=== PATIENT | female | born 1990 | race African-American/Black ===

== ENCOUNTER 2017-10-25 03:08 | Inpatient (IN) | payer MEDICAID ==
[2017-10-25 03:28] LABS: APPEARANCE,URINE SLIGHTLY-CLOUDY; BILIRUBIN,URINE NEGATIVE (NEGATIVE); COLOR,URINE STRAW; GLUCOSE, URINE NEGATIVE (NEGATIVE); KETONES,URINE NEGATIVE (NEGATIVE); LEUKOCYTE ESTERASE,URINE TRACE (NEGATIVE); NITRITE,URINE NEGATIVE (NEGATIVE); PROTEIN,URINE NEGATIVE (NEGATIVE); URINE SPECIFIC GRAVITY 1.001; UROBILINOGEN,URINE NEGATIVE mg/dL (<2.0)
[2017-10-25 03:45] LABS: URINE AMPHETAMINES SCREEN NEGATIVE; URINE BARBITURATES SCREEN NEGATIVE; URINE BENZODIAZEPINES SCREEN NEGATIVE; URINE COCAINE SCREEN NEGATIVE; URINE METHADONE SCREEN NEGATIVE; URINE PHENCYCLIDINE SCREEN NEGATIVE
[2017-10-25 03:53] LABS: URINE MARIJUANA (THC) SCREEN UNCONFIRMED POSITIVE
[2017-10-25 04:56] LABS: UR PRO/CREAT RATIO RESULT 0.8 mg/mg (0.0-0.2); URINE CREATININE 20.1 mg/dL (16-327); URINE PROTEIN 16.6 mg/dL (<12)
[2017-10-25 05:25] LABS: ABSOLUTE BASOPHILS # (AUTO) 0.1 10^3/uL (0.0-0.2); ABSOLUTE EOSINOPHILS # (AUTO) 0.2 10^3/uL (0.0-0.6); ABSOLUTE LYMPHOCYTES (AUTO) 3.2 10^3/uL (0.5-4.7); ABSOLUTE MONOCYTES (AUTO) 0.7 10^3/uL (0.1-1.4); ABSOLUTE NEUT (AUTO) 4.8 10^3/uL (1.7-8.2); BASOPHILS % (AUTO) 0.7 % (0-2); EOSINOPHILS % (AUTO) 1.9 % (0-6); HEMATOCRIT 34.1 % (36.0-47.0); HEMOGLOBIN 11.5 g/dL (12.0-15.5); LYMPHOCYTES % (AUTO) 36.2 % (13-45); MEAN CORPUSCULAR HEMOGLOBIN 27.2 pg (27.0-33.4); MEAN CORPUSCULAR HGB CONC 33.8 g/dL (32.0-36.0); MEAN CORPUSCULAR VOLUME 81 fl (80-97); MONOCYTES % (AUTO) 8.1 % (3-13); PLATELET COUNT 312 10^3/uL (150-450); RED BLOOD COUNT 4.22 10^6/uL (3.72-5.28); RED CELL DISTRIBUTION WIDTH 14.9 % (11.5-14.0); SEGMENTED NEUTROPHILS % (AUTO) 53.1 % (42-78); TOTAL CELLS COUNTED % (AUTO) 100 %
[2017-10-25 05:28] LABS: ALANINE AMINOTRANSFERASE 21 U/L (9-52); ALBUMIN 2.7 g/dL (3.5-5.0); ALKALINE PHOSPHATASE 151 U/L (38-126); ANION GAP 7 (5-19); ASPARTATE AMINO TRANSFERASE 17 U/L (14-36); BILIRUBIN,DIRECT 0.2 mg/dL (0.0-0.4); BILIRUBIN,TOTAL 0.2 mg/dL (0.2-1.3); BLOOD UREA NITROGEN 3 mg/dL (7-20); CALCIUM 8.9 mg/dL (8.4-10.2); CARBON DIOXIDE 23 mmol/L (22-30); CHLORIDE 108 mmol/L (98-107); GLUCOSE 100 mg/dL (75-110); LDH 379 U/L (313-618); POTASSIUM 3.1 mmol/L (3.6-5.0); SODIUM 137.7 mmol/L (137-145); TOTAL PROTEIN 5.6 g/dL (6.3-8.2); URIC ACID 4.8 mg/dL (2.5-6.2)
[2017-10-25] MEDS ORDERED: PENICILLIN G POTASSIUM 5,000,000 UNIT in DEXTROSE 5%-WATER 100 ML IV ONE (06:18)
[2017-10-25] MEDS ORDERED: RINGERS SOLUTION,LACTATED 1,000 ML IV PRN (06:18)
[2017-10-25] MEDS ORDERED: MISOPROSTOL 0.2 MG TABLET ONE (06:22)
[2017-10-25] MEDS ORDERED: LIDOCAINE 1% INJ-PF (10 MG/ML) 30 ML SDV ONE (06:22)
[2017-10-25] MEDS ORDERED: OXYTOCIN/NORMAL SALINE 20 UNIT/1,000 ML RTUINJ ONE (06:22)
[2017-10-25] MEDS ORDERED: PENICILLIN G-K 5 MILLION UNIT VIAL ONE ×2 (06:36→09:37)
[2017-10-25] MEDS ORDERED: OXYTOCIN/NORMAL SALINE 20 UNIT/1,000 ML RTUINJ IV PRN ×2 (06:58→10:07)
[2017-10-25] MEDS ORDERED: HYDRALAZINE HCL INJ/PF 20 MG/1 ML SDV ONE (07:39)
[2017-10-25] MEDS ORDERED: HYDRALAZINE HCL INJ/PF 20 MG/1 ML SDV IV ONE ×2 (07:47→08:09)
[2017-10-25] MEDS ORDERED: ONDANSETRON HCL INJ/PF 4 MG/2 ML SDV ONE (07:59)
[2017-10-25] MEDS ORDERED: ONDANSETRON HCL INJ/PF 4 MG/2 ML SDV IV ONE (08:01)
--- NOTE | 2017-10-25 08:04 | Admission Physical ---
Datetime Report Generated by CPN: 10/25/2017 08:04 CURRENT ADMISSION Chief Complaint: Uterine Contractions Indication for Induction: PreEclampsia Admit Impression : Term, Intrauterine ; Induction of Labor; Admit Plan: Admit to Unit; Initiate Labor Induction Protocol Admit Plan- Other: prot/creat of 0.8. Pressures elevated at LC today. Initiate delivery ALLERGIES Medication Allergies: Yes Medication Allergies: hydrocodone/hives, itching (10/25/2017); promethazine/VOMITING, diaph (10/25/2017) Latex: No Latex Allergies OBSTETRICAL HISTORY EDC: 11/04/2017 00:00 : 4 Para: 2 Term: 2 : 0 SAB: 0 IAB: 1 Ectopic: 0 Livin Cesareans: 1 VBACs: 1 Multiple Births: 0 Gestational Diabetes: No Rh Sensitization: No Incompetent Cervix: No ALEXIS: No Infertility: No ART Treatment: No Uterine Anomaly: No IUGR: No Hx Previous C/S: Yes Macrosomia: No Hx Loss/Stillborn: No PIH: No Hx : No Placenta Previa/Abruption: No Depression/PP Depression: Yes PTL/PROM: No Post Hemorrhage: No Current Procedures: Ultrasound; NST Obstetrical History Comments: G1- 2009 c/s @ 41weeks for distress G2- 2011 EAB @ 8weeks G3- 2012 G4- current SEE RECORDS Alcohol: No Marijuana : Yes Cocaine: No Other Illicit Drugs: No Cigarettes: Former Smoker. [id number] MEDICAL HISTORY Diabetes: No Blood Transfusion: No Pulmonary Disease (Asthma, TB): No Breast Disease: No Hypertension: No Dining Room Attendant Cafeteria Surgery: No Heart Disease: No Hosp/Surgery: Yes Autoimmune Disorder: No Anesthetic Complications: No Kidney Disease: No Abnormal Pap Smear: No Neuro/Epilepsy: No Psychiatric Disorders: No Other Medical Diseases: No Hepatitis/Liver Disease: No Significant Family History: No Varicosities/Phlebitis: No Trauma/Violence : No Thyroid Dysfunction: No Medical History Comments: d+c, c/s, cholecystectomy, tonsillectomy INFECTIOUS HISTORY Gonorrhea: No Genital Herpes: No Chlamydia: No Tuberculosis: No Syphilis: No Hepatitis: No HIV/AIDS Exposure: No Rash or Viral Illness: No HPV: No PHYSICAL EXAM General: Normal HEENT: Normal Neurologic: Normal Thyroid: Normal Heart: Normal Lungs: Normal Breast: Normal Back: Normal Abdomen: Normal Genitourinary Exam: Normal Extremities: Normal DTRs: Normal Pelvic Type: Adequate Vital Signs: Reviewed Details Vital Signs: elevated pressures VAGINAL EXAM Dilatation: 3 Effacement: 80 Station: -1 MEMBRANES Pooling: Negative Membranes: Intact FETUS A EGA: 38.4 Monitoring: External US FHR- Baseline: 120 Variability: Moderate 6-25bpm Accelerations: 15X15 Decelerations: None FHR Category: Category I Estimated Weight (gm): 3700 Presentation: Vertex PLANS FOR LABOR AND DELIVERY Pain Management: Epidural Feeding Preference: Both Benefit of Breast Feed Discussed: Yes Circumcision: N/A INFORMED CONSENT Signature: with User ID: [email or web address]
[2017-10-25] MEDS ORDERED: BUPIVACAINE HCL 0.25 % INJ/PF (2.5 MG/1 ML) 30 ML VIAL ONE (08:08)
[2017-10-25] MEDS ORDERED: EPHEDRINE SULFATE INJ 50 MG/1 ML AMPULE ONE (08:08)
[2017-10-25] MEDS ORDERED: FENTANYL/BUPIVACAINE/NS/PF 300 MCG/150 ML RTUINJ EPI ONE (08:08)
[2017-10-25] MEDS ORDERED: ACETAMINOPHEN 325 MG TABLET PO PRN (10:07)
[2017-10-25] MEDS ORDERED: MAGNESIUM HYDROXIDE SUSP 30 ML UDCUP PO PRN (10:07)
[2017-10-25] MEDS ORDERED: DIBUCAINE 1% OINTMENT 28 GM TP PRN (10:07)
[2017-10-25] MEDS ORDERED: PROMETHAZINE HCL 25 MG TABLET PO PRN (10:07)
[2017-10-25] MEDS ORDERED: PSEUDOEPHEDRINE HCL 30 MG TABLET PO PRN (10:07)
[2017-10-25] MEDS ORDERED: NA PHOS,M-B/NA PHOS,DI-BA (ADULT) 133 ML ENEMA PR PRN (10:07)
[2017-10-25] MEDS ORDERED: MEASLES,MUMPS&RUBELLA VACC/PF 0.5 ML VIAL SUBCUT PRN (10:07)
[2017-10-25] MEDS ORDERED: PROMETHAZINE HCL INJ 25 MG/1 ML VIAL IV PRN (10:07)
[2017-10-25] MEDS ORDERED: ZOLPIDEM TARTRATE 5 MG TABLET PO PRN (10:07)
[2017-10-25] MEDS ORDERED: DIPH/PERTUSS(ACELL)/TETANUS VAC/PF 0.5 ML SYR (>=10YO) IM PRN (10:07)
[2017-10-25] MEDS ORDERED: BENZOCAINE/MENTHOL AEROSOL SPRAY 56 ML TOP PRN (10:07)
[2017-10-25] MEDS ORDERED: GLYCERIN/WITCH HAZEL LEAF 1 EACH MED..PAD TP PRN (10:07)
[2017-10-25] MEDS ORDERED: PROMETHAZINE HCL 25 MG SUPP.RECT PR PRN (10:07)
[2017-10-25] MEDS ORDERED: DIPHENHYDRAMINE HCL 25 MG CAPSULE PO PRN (10:07)
[2017-10-25] MEDS ORDERED: PENICILLIN G POTASSIUM 2,500,000 UNIT in DEXTROSE 5%-WATER 50 ML IV SCH (10:18)
--- NOTE | 2017-10-25 10:19 | Warning Signs in Babies ---
VOD Warning Signs Datetime Report Generated by N: 10/25/2017 10:18 VOD#[id number] -Warning Signs in Babies: Viewed with Parent(s)/Family (10/25/2017 10:18:Nellie Gonzalez RN)
--- NOTE | 2017-10-25 12:01 | Delivery Summary ---
Del Sum A-C Datetime Report Generated by CPN: 10/25/2017 12:01 DELIVERY PERSONNEL DELIVERY PERSONNEL: [id number] Delivery Doctor:: Sil Anand CNM Nurse Geophysical Manager Certified:: Sil Anand CNM Labor and Delivery Nurse:: Nellie Gonzalez RNproperty controller Nurse:: KARI Hannah Nursery Nurse:: Saniya Almanzar RN Networking Technician/DOG FOOD DOUGH MIXER: Zuri Singer, NEWS PRODUCTION SUPERVISOR MATERNAL INFORMATION Delivery Anesthesia: Epidural Medications After Delivery: Pitocin Bolus-Please Comment Meds After Delivery Comment: Pitocin 20 units in 1000 ml nss open for bolus per gravity Maternal Complications: Other Complication Details: previous C/S x1 Provider Comments: pt progressed to c/100/+1. Pushed very well, of viable female , head, shoulders, and body delivered without difficulty, with spontaneous cry and respiratons, to maternal abodmen, cord clamped X2, after 2 minute delay, cut free. spontaneous delivery of placenta, appears intact, 3 VC, vagina and perineum inspected no lacerations noted, hemostasis acheived with external fundal massage and IV pitocin, mother and in stable condition, routine pp care. LABOR SUMMARY EDC: 11/04/2017 00:00 No. Babies in Womb: 1 Attempted: No Labor Anesthesia: Epidural LABOR INFORMATION Reason for Induction: Not Applicable Onset of Labor: 10/25/2017 08:30 Complete Dilatation: 10/25/2017 10:00 Oxytocin: Augmentation Group B Beta Strep: positive Antibiotics # of Doses: 2 Antibiotics Time of Last Dose: 1003 Name of Antibiotic Given: Penicillin Steroids Given: None Reason Steroids Not Administered: Not Applicable MEMBRANES Membranes Rupture Method: Spontaneous Rupture of Membranes: 10/25/2017 08:46 Length of Rupture (hr): 1.28 Amniotic Fluid Color: Clear Amniotic Fluid Amount: Moderate Amniotic Fluid Odor: Normal STAGES OF LABOR Stage 1 hr: 1 Stage 1 min: 30 Stage 2 hr: 0 Stage 2 min: 3 Stage 3 hr: 0 Stage 3 min: 3 Total Time in Labor hr: 1 Total Time in Labor min: 36 VAGINAL DELIVERY Episiotomy: None Laceration #1: None Laceration Extension #1: N/A Laceration Repair: Not Applicable Sponge Count Correct: N/A Sharps Count Correct: N/A CSECTION DELIVERY Primary Indication: N/A Secondary Indication: N/A CSection Incidence: N/A Labor: N/A Elective: N/A CSection Incision: N/A BABY A INFORMATION Delivery Date/Time: 10/25/2017 10:03 Method of Delivery: Vaginal Born in Route : No : Successful Forceps: N/A Vacuum Extraction: N/A Shoulder Dystocia : No PRESENTATION/POSITION BABY A Presentation: Cephalic Cephalic Presentation: Vertex Vertex Position: Left Occipital Anterior Breech Presentation: N/A PLACENTA INFORMATION BABY A Placenta Delivery Time : 10/25/2017 10:06 Placenta Method of Delivery: Spontaneous Placenta Status: Delivered SCORES BABY A Heart Rate 1 min: >100 bpm Resp Effort 1 min: Good Cry Reflex Irritability 1 min: Cough or Sneeze or Pulls Away Muscle Tone 1 min: Active Motion Color 1 min: Blue/Pale Resuscitation Effort 1 min: Tactile Stimulation SCORE 1 MIN: 8 Heart Rate 5 min: >100 bpm Resp Effort 5 min: Good Cry Reflex Irritability 5 min: Cough or Sneeze or Pulls Away Muscle Tone 5 min: Active Motion Color 5 min: Body [place], Extremities Blue Resuscitation Effort 5 min: N/A SCORE 5 MIN: 9 Resuscitation Effort 10 min: N/A INFANT INFORMATION BABY A Gestational Age at Delivery: 38.4 Gestational Status: Early Term- 37- 38.6 Weeks Outcome : Liveborn Condition : Stable Infant Sex: Female IDENTIFICATION BABY A Verification Date/Time: 10/25/2017 10:28 ID Band Number: [id number] Mother's Name Verified: Yes Infant RN Verifying Infant: Yakelin Christiana RNC Additional Verifying Personnel: Anne FitzpatrickRolan RN WEIGHT/LENGTH BABY A Birthweight (gm): 2630 Infant Weight (lb): 5 Infant Weight (oz): 13 Infant Length (in): 18.50 Length (cm): 46.99 CORD INFORMATION BABY A No. Cord Vessels: 3 Nuchal Cord : N/A Cord Blood Taken: Yes-For Eval (Mom's Blood Type - or O+) Suction: None ASSESSMENT BABY A Complications: None Physical Findings at Delivery: Within Normal Limits Infant Respirations: Appears Normal Skin to Skin: Yes Photographer News/ALS Called : No Care By: K Yohan RN Transferred To: Remains with Mother BABY B INFORMATION : N/A SIGNATURES Assignment: Sara Soliman MD Signature: with User ID: [email or web address] : with User ID: [email or web address]
[2017-10-25] MEDS: IBUPROFEN 800 MG TABLET PO SCH ×2 (13:13→21:59)
[2017-10-25] MEDS: DOCUSATE SODIUM 100 MG CAPSULE PO SCH (17:00)
[2017-10-25] MEDS: FERROUS SULFATE 325 MG TABLET PO SCH (17:01)
[2017-10-25] MEDS: FAMOTIDINE 20 MG TABLET PO SCH (21:59)
[2017-10-26] MEDS: IBUPROFEN 800 MG TABLET PO SCH ×3 (06:01→21:52)
[2017-10-26 06:45] LABS: HEMATOCRIT 31.1 % (36.0-47.0); HEMOGLOBIN 10.6 g/dL (12.0-15.5); MEAN CORPUSCULAR HEMOGLOBIN 27.7 pg (27.0-33.4); MEAN CORPUSCULAR HGB CONC 33.9 g/dL (32.0-36.0); MEAN CORPUSCULAR VOLUME 82 fl (80-97); PLATELET COUNT 292 10^3/uL (150-450); RED BLOOD COUNT 3.81 10^6/uL (3.72-5.28); RED CELL DISTRIBUTION WIDTH 14.8 % (11.5-14.0); WHITE BLOOD COUNT 10.5 10^3/uL (4.0-10.5)
[2017-10-26] MEDS: FAMOTIDINE 20 MG TABLET PO SCH ×2 (10:11→21:52)
[2017-10-26] MEDS: FERROUS SULFATE 325 MG TABLET PO SCH ×2 (10:11→17:17)
[2017-10-26] MEDS: DOCUSATE SODIUM 100 MG CAPSULE PO SCH ×2 (10:12→17:17)
[2017-10-26] MEDS: PRENATAL VITAMIN W DHA CAPSULE PO SCH (10:12)
[2017-10-26] MEDS: SENNOSIDES/DOCUSATE 8.6-50 MG 1 EACH TABLET PO SCH (10:12)
--- NOTE | 2017-10-26 11:26 | PDOC PROGRESS REPORT ---
Subjective-OB Progress Note for:: 10/26/17 Subjective: 27yo G4 now P3 s/p ppd 1. Pt. ambulating and voiding without difficulty. denies SOB/chest pain/dizziness/headache/RUQ or other concerns at this time. Physical Exam (OB) Vital Signs: Temp Pulse Resp BP Pulse Ox 98.1 F 69 18 127/83 H 100 10/26/17 08:07 10/26/17 08:07 10/26/17 08:07 10/26/17 08:07 10/26/17 08:07 Intake & Output 10/25/17 10/26/17 10/27/17 06:59 06:59 06:59 Intake Total 1000 Balance 1000 Weight 111.9 kg - General General Appearance: Appears well In distress: None - PIH/Pre-Eclampsia DTR's: 1 + Clonus: Negative Headache: Absent Epigastric Pain: No Visual Changes: No - Episiotomy/Laceration Site Condition: N/A - Lochia Lochia Amount: Scant < 10 ml Lochia Color: Rubra/Red - Abdomen Description: Soft Hernia Present: No Fundal Description: Firm, Midline Fundal Height: u/u - u/2 - Respiratory Respiratory Status: No respiratory distress - Extremities Upper extremity: Normal inspection Lower extremities: Normal inspection - Neurological Cognition: Normal Orientation: AAOx4 - Psychological Associated symptoms: Normal affect - bonding with baby, partner at bedside, Normal mood Objective-Diagnostic Laboratory: 10/26/17 06:32 10/25/17 04:58 10/26/17 06:32 WBC 10.5 RBC 3.81 Hgb 10.6 L Hct 31.1 L MCV 82 MCH 27.7 MCHC 33.9 RDW 14.8 H Plt Count 292 Assessment and Plan(PN) - Assessment and Plan (1) History of section, low transverse Is this a current diagnosis for this admission?: Yes Plan: Routine pp care. (2) Limited care Qualifiers: Trimester: unspecified trimester Qualified Code(s): O09.30 - Supervision of with insufficient care, unspecified trimester Is this a current diagnosis for this admission?: Yes Plan: delivered (3) Vaginal after () Is this a current diagnosis for this admission?: Yes Plan: Routine pp care. (4) Acute blood loss anemia Is this a current diagnosis for this admission?: Yes Plan: Increase dietary iron and feso4 bid (5) Preeclampsia Qualifiers: Trimester: unspecified trimester Qualified Code(s): O14.90 - Unspecified pre-eclampsia, unspecified trimester Is this a current diagnosis for this admission?: Yes Plan: continue to monitor for s/s of pre-e. - Time Spent with Patient Time with patient: Less than 15 minutes Medications reviewed and adjusted accordingly: Yes - Disposition Anticipated Discharge: Home Within: within 24 hours
[2017-10-27] MEDS: IBUPROFEN 800 MG TABLET PO SCH (06:00)
--- NOTE | 2017-10-27 08:50 | PDOC DISCHARGE SUMMARY ---
Final Diagnosis Discharge Date: 10/27/17 - Final Diagnosis (1) Acute blood loss anemia Is this a current diagnosis for this admission?: Yes (2) Cannabis use disorder, mild, abuse Is this a current diagnosis for this admission?: Yes (3) History of section, low transverse Is this a current diagnosis for this admission?: Yes (4) Limited care Is this a current diagnosis for this admission?: Yes (5) Preeclampsia Is this a current diagnosis for this admission?: Yes (6) Vaginal after () Is this a current diagnosis for this admission?: Yes Discharge Data - Discharge Medication Prescriptions: Docusate Sodium [Colace 100 mg Capsule] 100 mg PO BID #60 capsule Ferrous Sulfate [Feosol 325 mg Tablet] 325 mg PO BID #60 tablet Ibuprofen [Motrin 800 mg Tablet] 800 mg PO Q8 #60 tablet Home Medications: Pnv 102/Iron/Folate 1/Dss/Dha [Vitafol Fe+ Docusate Combo Pck] 1 tab PO DAILY Docusate Sodium [Colace 100 mg Capsule] 100 mg PO BID #60 capsule 10/27/17 Ferrous Sulfate [Feosol 325 mg Tablet] 325 mg PO BID #60 tablet 10/27/17 Ibuprofen [Motrin 800 mg Tablet] 800 mg PO Q8 #60 tablet 10/27/17 Gestational Age: 38.4 Reason(s) for Admission: Induction of Labor, PIH Procedures: NST Intrapartum Procedure(s): Spontaneous Vaginal Delivery - Data Baby 1 Female at 1 minute: 8 at 5 minutes: 9 Weight: 2630 kg Home with Mother: Yes Complications: No - Diagnosis Test Laboratory: Temp Pulse Resp BP Pulse Ox 97.6 F 75 20 149/87 H 100 10/27/17 08:00 10/27/17 08:00 10/27/17 08:00 10/27/17 08:00 10/27/17 08:00 10/25/17 10/25/17 10/26/17 03:18 04:58 06:32 RBC 4.22 3.81 Hgb 11.5 L 10.6 L Hct 34.1 L 31.1 L Urine Opiates Screen NEGATIVE - Discharge information/Instructions Discharge Activity: Activity As Tolerated, Pelvic Rest, No tub bath Discharge Diet: Regular Disposition: HOME, SELF-CARE Follow up with: [facility] in: 1, Weeks
[2017-10-27] MEDS: DOCUSATE SODIUM 100 MG CAPSULE PO SCH (09:30)
[2017-10-27] MEDS: SENNOSIDES/DOCUSATE 8.6-50 MG 1 EACH TABLET PO SCH (09:30)
[2017-10-27] MEDS: FERROUS SULFATE 325 MG TABLET PO SCH (09:30)
[2017-10-27] MEDS: FAMOTIDINE 20 MG TABLET PO SCH (09:30)
[2017-10-27] MEDS: PRENATAL VITAMIN W DHA CAPSULE PO SCH (09:30)
[2017-10-27 11:54] VITALS: BP 139/92
== END 2017-10-27 13:55 | disposition home or self-care (01) | DRG 775 ==
LOC: LC 03:08 → LR 05:36 → 2S 12:13
PROVIDERS: ADMIT Obstetrics & Gynecology; ATTEND Obstetrics & Gynecology
PROC: 10E0XZZ Delivery of Products of Conception, External Approach (ICD-10-PCS; principal; 2017-10-25)
PROC: 4A1HXCZ Monitoring of Products of Conception, Cardiac Rate, External Approach (ICD-10-PCS; 2017-10-25)
DX: O34.211 Maternal care for low transverse scar from previous cesarean delivery (principal); O99.324 Drug use complicating childbirth; F12.90 Cannabis use, unspecified, uncomplicated; O14.94 Unspecified pre-eclampsia, complicating childbirth; O99.824 Streptococcus B carrier state complicating childbirth; Z3A.38 38 weeks gestation of pregnancy; Z37.0 Single live birth; Z90.49 Acquired absence of other specified parts of digestive tract; Z87.891 Personal history of nicotine dependence
CPT/HCPCS: 36415; 59025; 80053; 80307; 81005; 82570; 83615; 84156; 84550; 85025; 85027; 86592; 86850; 86900; 86901; J0360; J2405; J2540; J2590; J3010; J3490

== ENCOUNTER 2019-07-07 05:43 | Emergency (ER) | payer SELFPAY ==
[2019-07-07 06:33] LABS: A TYPE INFLUENZA AG NEGATIVE (NEGATIVE)
[2019-07-07 06:34] LABS: B INFLUENZA AG NEGATIVE (NEGATIVE)
[2019-07-07] MEDS ORDERED: BENZONATATE 100 MG CAPSULE PO ONE (08:01)
[2019-07-07 08:20] VITALS: BP 145/77
--- NOTE | 2019-07-10 10:25 | ER Document Report ---
Entered by ALEJANDRO COLON SCRIBE 07/07/19 0756 Acting as scribe for:GALINA LOUIS MD ED General - General Chief Complaint: Flu Symptoms Stated Complaint: FLU LIKE SYMPTOMS Time Seen by Provider: 07/07/19 07:40 Information source: Patient Notes: 29 year old female presents to the emergency department with flu-like symptoms that began yesterday. Patient complains of cough, nausea and sputum that is "clear with a little bit of green". Patient denies vomiting. Patient did not receive her influenza vaccine this year. TRAVEL OUTSIDE OF THE [place] IN LAST 30 DAYS: No - Related Data Allergies/Adverse Reactions: hydrocodone [From Lortab] Adverse Reaction (Verified 07/07/19 05:54) hives, itching promethazine [From Phenergan] Adverse Reaction (Verified 07/07/19 05:54) VOMITING, diaphoresis Past Medical History - General Information source: Patient - Social History Smoking Status: Current Every Day Smoker Cigarette use (# per day): Yes - 1/2 pack per day Chew tobacco use (# tins/day): No Frequency of alcohol use: None Family History: Reviewed & Not Pertinent Patient has suicidal ideation: No Patient has homicidal ideation: No - Medical History Medical History: Negative Past Surgical History: Reports: Hx Section, Hx Cholecystectomy, Hx Tonsillectomy Review of Systems - Review of Systems Constitutional: No symptoms reported EENT: No symptoms reported Cardiovascular: No symptoms reported Respiratory: See HPI, Cough, Sputum - Clear with some green Gastrointestinal: See HPI, Nausea. denies: Vomiting Genitourinary: No symptoms reported Female Genitourinary: No symptoms reported Musculoskeletal: No symptoms reported Skin: No symptoms reported Hematologic/Lymphatic: No symptoms reported Neurological/Psychological: No symptoms reported -: Yes All other systems reviewed and negative Physical Exam - Vital signs Vitals: Temp Pulse Resp BP Pulse Ox 99.0 F 105 H 14 150/77 H 94 07/07/19 05:56 07/07/19 05:56 07/07/19 05:56 07/07/19 05:56 07/07/19 05:56 - Notes Notes: Physical Exam: General: Alert, appears well. Obese. HEENT: Normocephalic. Atraumatic. PERRL. Extraocular movements intact. Oropharynx clear. TMs are retracted bilaterally. Nasal and sinus congestion. Neck: Supple. Non-tender. Respiratory: No respiratory distress. Coarse and harsh breath sounds bilaterally. No wheezes. Cardiovascular: Regular rate and rhythm. Abdominal: Normal Inspection. Non-tender. No distension. Normal Bowel Sounds. Back: No gross abnormalities. Extremities: Moves all four extremities. Upper extremities: Normal inspection. Normal ROM. Lower extremities: Normal inspection. No edema. Normal ROM. Neurological: Normal cognition. AAOx4. Normal speech. Psychological: Normal affect. Normal Mood. Skin: Warm. Dry. Normal color. Course - Vital Signs Vital signs: Temp Pulse Resp BP Pulse Ox 99.0 F 102 H 18 145/77 H 99 07/07/19 08:21 07/07/19 08:21 07/07/19 08:21 07/07/19 08:21 07/07/19 08:21 Discharge - Discharge Clinical Impression: Viral upper respiratory tract infection with cough Condition: Stable Disposition: HOME, SELF-CARE Additional Instructions: Upper Respiratory Illness You have a viral infection of the respiratory passages -- a "cold." This common infection causes nasal congestion, drainage, and often sore throat and cough. It is caused by a virus and is highly contagious. The disease usually lasts a week or more, though the worst symptoms are usually over in 3 or 4 days. There is no "cure" for the viral infection -- it must run its course. If there is a complication, such as bacterial infection in the nose, sinuses, middle ear, or bronchial tubes, antibiotics may be required, but antibiotics won't affect the virus. If you smoke, you should STOP!! Drink plenty of fluids. A humidifier may help. An expectorant medication or decongestant may make you more comfortable. Use acetaminophen or ibuprofen for fever or aches. See the doctor if fever persists over two or three days, if there is any significant worsening of your symptoms, or if you simply fail to improve as expected. Try the xmea-bit-ayaotqj cough and cold preparations such as Delsym DM, or Robitussin-DM. Take the Tessalon Perles as prescribed to help suppress your cough. Take Tylenol and ibuprofen for fever and pains as needed. Drink plenty of fluids and get plenty of rest. Follow-up with your primary care provider if not improving. RETURN TO THE EMERGENCY ROOM IF ANY NEW OR WORSENING SYMPTOMS. Prescriptions: Benzonatate [Tessalon Perles 100 mg Capsule] 100 mg PO ASDIR PRN #30 capsule PRN Reason: Scribe Attestation: 07/07/19 07:59 I personally performed the services described in the documentation, reviewed and edited the documentation which was dictated to the scribe in my presence, and it accurately records my words and actions. I personally performed the services described in the documentation, reviewed and edited the documentation which was dictated to the scribe in my presence, and it accurately records my words and actions.
== END 2019-07-07 08:21 | disposition home or self-care (01) ==
LOC: ER 05:43
DX: J06.9 Acute upper respiratory infection, unspecified (principal); B34.9 Viral infection, unspecified; R11.0 Nausea; F17.210 Nicotine dependence, cigarettes, uncomplicated; Z88.6 Allergy status to analgesic agent; Z90.49 Acquired absence of other specified parts of digestive tract
CPT/HCPCS: 87804; 99283

== ENCOUNTER 2019-07-12 09:43 | Emergency (ER) | payer SELFPAY ==
[2019-07-12] MEDS ORDERED: ONDANSETRON HCL INJ/PF 4 MG/2 ML SDV IV ONE (11:43)
[2019-07-12] MEDS ORDERED: NORMAL SALINE 1000 ML 1,000 ML IV ONE ×2 (11:43→13:36)
--- NOTE | 2019-07-12 11:45 | ER Document Report ---
ED Medical Screen (RME) - General Chief Complaint: Nausea/Vomiting Stated Complaint: POSSIBLE DEHYDRATION/VOMITING/NAUSEA/MUSCLE SPASAM Time Seen by Provider: 07/12/19 11:39 Notes: Patient is a 29-year-old female who presents emergency department with a chief complaint of leg cramping. Patient reports she was seen here last and although her flu test was negative they said she most likely did have influenza. Patient reports since then she vomits about 5-6 times per day. Patient reports the vomitus does occur with cough most of the time but if she attempts to drink a significant amount of water she vomits. Patient also reports last bowel movement last Wednesday. Patient reports feeling constipated. Patient concern for dehydration. Patient denies diarrhea. Patient reports she has not run a fever in the past 24 hours but continues to have nausea and cough. TRAVEL OUTSIDE OF THE [place] IN LAST 30 DAYS: No - Related Data Allergies/Adverse Reactions: hydrocodone [From Lortab] Adverse Reaction (Verified 07/12/19 11:36) hives, itching promethazine [From Phenergan] Adverse Reaction (Verified 07/12/19 11:36) VOMITING, diaphoresis Past Medical History - Social History Chew tobacco use (# tins/day): No Frequency of alcohol use: None Drug Abuse: None Renal/ Medical History: Denies: Hx Peritoneal Dialysis Past Surgical History: Reports: Hx Section, Hx Cholecystectomy, Hx T onsillectomy Physical Exam - Vital signs Vitals: Temp Pulse Resp BP Pulse Ox 97.5 F 81 18 153/91 H 98 07/12/19 10:26 07/12/19 10:07/12/19 10:26 07/12/19 10:07/12/19 10:26 Course - Re-evaluation Re-evalutation: 07/12/19 11:44 Congested cough noted throughout examination. Will obtain basic labs, urinalysis and give IV fluids. I have greeted and performed a rapid initial assessment of this patient. A comprehensive ED assessment and evaluation of the patient, analysis of test results and completion of the medical decision making process will be conducted by additional ED providers. - Vital Signs Vital signs: Temp Pulse Resp BP Pulse Ox 97.5 F 81 18 153/91 H 98 07/12/19 10:07/12/19 10:07/12/19 10:26 07/12/19 10:26 07/12/19 10:26
[2019-07-12 12:17] LABS: APPEARANCE,URINE CLOUDY; BILIRUBIN,URINE SMALL (NEGATIVE); COLOR,URINE AMBER; GLUCOSE, URINE NEGATIVE (NEGATIVE); KETONES,URINE 80 mg/dL (NEGATIVE); LEUKOCYTE ESTERASE,URINE NEGATIVE (NEGATIVE); NITRITE,URINE NEGATIVE (NEGATIVE); PROTEIN,URINE 100 mg/dL (NEGATIVE); URINE SPECIFIC GRAVITY 1.025
[2019-07-12 12:31] LABS: ABSOLUTE MONOCYTES (AUTO) 0.6 10^3/uL (0.1-1.4); ABSOLUTE NEUT (AUTO) 2.7 10^3/uL (1.7-8.2); BASOPHILS % (AUTO) 0.6 % (0-2); EOSINOPHILS % (AUTO) 0.5 % (0-6); HEMATOCRIT 43.6 % (36.0-47.0); HEMOGLOBIN 14.9 g/dL (12.0-15.5); LYMPHOCYTES % (AUTO) 47.4 % (13-45); MEAN CORPUSCULAR HEMOGLOBIN 28.4 pg (27.0-33.4); MEAN CORPUSCULAR HGB CONC 34.2 g/dL (32.0-36.0); MEAN CORPUSCULAR VOLUME 83 fl (80-97); MONOCYTES % (AUTO) 9.7 % (3-13); PLATELET COUNT 382 10^3/uL (150-450); RED BLOOD COUNT 5.25 10^6/uL (3.72-5.28); RED CELL DISTRIBUTION WIDTH 13.7 % (11.5-14.0); SEGMENTED NEUTROPHILS % (AUTO) 41.8 % (42-78); TOTAL CELLS COUNTED % (AUTO) 100 %; WHITE BLOOD COUNT 6.4 10^3/uL (4.0-10.5)
--- NOTE | 2019-07-12 13:09 | RADIOLOGY REPORT (SQ) ---
EXAM DESCRIPTION: CHEST 2 VIEWS COMPLETED DATE/TIME: 07/12/2019 12:47 pm REASON FOR STUDY: productive cough x 1 week COMPARISON: None. EXAM PARAMETERS: NUMBER OF VIEWS: two views TECHNIQUE: Digital Frontal and Lateral radiographic views of the chest acquired. RADIATION DOSE: NA LIMITATIONS: none FINDINGS: LUNGS AND PLEURA: Ill-defined left lower lobe opacities. No pleural effusion. No pneumot horax MEDIASTINUM AND HILAR STRUCTURES: No masses or contour abnormalities. HEART AND VASCULAR STRUCTURES: Heart normal size. No evidence for failure. BONES: No acute findings. HARDWARE: None in the chest. Prior cholecystectomy. OTHER: No other significant finding. IMPRESSION: Ill-defined left lower lobe opacities compatible with pneumonia. TECHNICAL DOCUMENTATION: JOB ID: [id number] [employer]- All Rights Reserved Reading location - IP/workstation name: [email or web address]
[2019-07-12] MEDS ORDERED: CEFTRIAXONE INJ 1000 MG VIAL IV ONE (13:36)
[2019-07-12 13:50] LABS: ALBUMIN 3.7 g/dL (3.5-5.0); ALKALINE PHOSPHATASE 98 U/L (38-126); ANION GAP 11 (5-19); ASPARTATE AMINO TRANSFERASE 90 U/L (14-36); BILIRUBIN,DIRECT 0.5 mg/dL (0.0-0.4); BILIRUBIN,TOTAL 0.7 mg/dL (0.2-1.3); BLOOD UREA NITROGEN 7 mg/dL (7-20); CALCIUM 8.7 mg/dL (8.4-10.2); CARBON DIOXIDE 23 mmol/L (22-30); CHLORIDE 105 mmol/L (98-107); GLUCOSE 94 mg/dL (75-110); POTASSIUM 3.9 mmol/L (3.6-5.0); TOTAL PROTEIN 7.2 g/dL (6.3-8.2)
--- NOTE | 2019-07-12 13:51 | ER Document Report ---
ED General - General Chief Complaint: Nausea/Vomiting Stated Complaint: POSSIBLE DEHYDRATION/VOMITING/NAUSEA/MUSCLE SPASAM Time Seen by Provider: 07/12/19 11:39 TRAVEL OUTSIDE OF THE [place] IN LAST 30 DAYS: No - HPI Notes: Ms. Nieves is a 29-year-old female with a chief complaint of cough and vomiting. Patient been seen here few days ago by another provider with a flulike illness. Her influenza a and B screens were negative at that time she was given symptomatic treatment and sent home. She says she gradually felt better over the next several days. Within the last 24 hours she has developed increasing cough and is bringing up some green sputum and also has had some low- grade fever and episodes of nausea and vomiting with the cough. She is having difficulty keeping fluids down this morning. Patient is a cigarette smoker but says she quit smoking when she developed flulike symptoms the other day and has not smoked any since. She is currently breast-feeding baby. - Related Data Allergies/Adverse Reactions: hydrocodone [From Lortab] Adverse Reaction (Verified 07/12/19 11:36) hives, itching promethazine [From Phenergan] Adverse Reaction (Verified 07/12/19 11:36) VOMITING, diaphoresis Past Medical History - General Information source: Patient - Social History Smoking Status: Former Smoker Chew tobacco use (# tins/day): No Frequency of alcohol use: None Drug Abuse: None Family History: Reviewed & Not Pertinent Patient has suicidal ideation: No Patient has homicidal ideation: No Renal/ Medical History: Denies: Hx Peritoneal Dialysis Past Surgical History: Reports: Hx Section, Hx Cholecystectomy, Hx Tonsillectomy Review of Systems - Review of Systems Notes: Constitutional: As per HPI. HENT: Negative for sore throat. Eyes: Negative for visual changes. Cardiovascular: Negative for chest pain. Respiratory: As per HPI. Gastrointestinal: As per HPI. Genitourinary: No dysuria. Musculoskeletal: Negative for back pain. Skin: Negative for rash. Neurological: Negative for headaches, weakness or numbness. 10 point ROS negative except as marked above and in HPI. Physical Exam - Vital signs Vitals: Temp Pulse Resp BP Pulse Ox 97.5 F 81 18 153/91 H 98 07/12/19 10:26 07/12/19 10:26 07/12/19 10:26 07/12/19 10:26 07/12/19 10:26 - Notes Notes: GENERAL: Obese female approximately stated age appearing in no acute distress. SKIN: Good turgor no rashes. HEAD: Normocephalic atraumatic. EYES: PERRLA. EOMI. Conjunctivae and sclerae clear. EARS: CANALS AND TMS CLEAR. NOSE: CLEAR. MOUTH: Moist mucosa. Good dentition. No stridor or edema. No drooling. NECK: Supple. No masses or thyromegaly. No adenopathy. Carotids 2+ without bruits. No JVD. BACK: Symmetrical without tenderness. CHEST: Dry cough. Respirations unlabored. Few faint wheezes and scattered rhonchi bilaterally. HEART: Regular rhythm. No murmur gallop or rub. ABDOMEN: Soft nontender without masses, organomegaly or rebound. Bowel sounds normally active. No bruits. GENITALIA: Deferred. EXTREMITIES: No edema. No calf tenderness. Cap refill less than 1.5 seconds. Dorsalis pedis and posterior tibial pulses 3+ and symmetrical. NEUROLOGICAL: GCS 15. Alert and oriented x3. Normal gait. Fluent speech. Cranial nerves II through XII intact. Sensorimotor and cerebellar normal. Normal tone. PSYCHIATRIC: Appropriate affect. Course - Re-evaluation Re-evalutation: 07/12/19 13:50 Clinically patient looks mildly dehydrated. She is receiving normal saline IV and also IV Rocephin. - Vital Signs Vital signs: Temp Pulse Resp BP Pulse Ox 98.2 F 79 16 152/93 H 98 07/12/19 16:07 07/12/19 16:07 07/12/19 16:07 07/12/19 16:07 07/12/19 16:07 - Laboratory Result Diagrams: 07/12/19 12:10 07/12/19 13:10 Laboratory results interpreted by me: 07/12/19 07/12/19 07/12/19 11:50 12:10 13:10 Lymph % (Auto) 47.4 H Seg Neutrophils % 41.8 L Direct Bilirubin 0.5 H AST 90 H Urine Protein 100 H Urine Ketones 80 H Urine Bilirubin SMALL H Urine Urobilinogen 4.0 H - Diagnostic Test Radiology reviewed: Reports reviewed - Patchy infiltrate left lower lobe per radiologist Discharge - Discharge Clinical Impression: Pneumonia left lower lobe, Dehydration Condition: Stable Disposition: HOME, SELF-CARE Additional Instructions: Pneumonia Your examination indicates that you have pneumonia. This is an infection of the lung tissue, usually caused by bacteria or a virus. Symptoms include cough, fever, shaking chills, chest pain, shortness of breath, and coughing up bloody sputum. Treatment for bacterial pneumonia includes rest, antibiotics for 10 to 14 days, increasing your clear liquid intake, a cool mist humidifier at your bedside, and fever medication. Often, a repeat chest X-ray is performed in a few weeks--even if you feel better--to ascertain whether the infection has completely resolved and no underlying lung problem is present. You should call the physician if you develop persistent vomiting, high fever that does not respond to fever medication, increasing shortness of breath, confusion, or lethargy. Also, failure to improve within two to three days is an indication for re-examination. Dehydration Dehydration can result from vomiting or diarrhea, fever, or decreased intake of fluids. If severe, hospitalization and intravenous fluids may be required. Most cases are treated at home with fluids by mouth. For the next 24 hours, drink lots of clear fluids. In mild cases, this can be soda pop or sports drinks. For more severe dehydration, the doctor may recommend special fluids such as Pedialyte or Lytren. Try to get three liters (3 quarts) of fluid per day. If vomiting occurs, continue to drink the fluids frequently (every 15 to 20 minutes), but in small amounts (one or two ounces). Depending on the type of dehydration, the doctor may prescribe antinausea medicine or potassium replacements. Call the doctor or return for re-examination if you become progressively weak, vomit repeatedly, or have other new symptoms. Take prescribed medications. Follow-up with primary care doctor within the next 2 to 3 days. Return here as needed for new or worsening symptoms: Pain that is worsening or unimproved Uncontrolled vomiting High fever or shaking chills Overall worsening Prescriptions: Albuterol Sulfate [Proair HFA Inhalation Aerosol 8.5 gm MDI] 2 puff IH Q4H PRN #1 mdi PRN Reason: Azithromycin [Zithromax 250 mg Tablet] 250 mg PO ASDIR PRN #6 tablet PRN Reason:
[2019-07-12 16:11] VITALS: BP 152/93
== END 2019-07-12 16:51 | disposition home or self-care (01) ==
LOC: ER 09:43
DX: J18.9 Pneumonia, unspecified organism (principal); E86.0 Dehydration; R11.2 Nausea with vomiting, unspecified; R50.9 Fever, unspecified; F17.210 Nicotine dependence, cigarettes, uncomplicated; E66.9 Obesity, unspecified
CPT/HCPCS: 36415; 85025; 81025; 80053; 81001; 71046; J0696; J2405; J7030